=== PATIENT | male | born 1975 | race Hispanic/Latino ===

== ENCOUNTER 2024-02-05 19:51 | Emergency (ER) | payer OTHER ==
[~2024-02-05] VITALS: Ht 177.8 cm; Wt 117.9 kg
[2024-02-05 20:15] VITALS: PULSE 90; RESP 17; TEMP 98.3
[2024-02-05] MEDS ORDERED: NEURONTIN300 MG PO (21:24)
[2024-02-05] MEDS ORDERED: LANTUS 3ML100 UNITS/ SQ (21:24)
[2024-02-05 21:50] VITALS: BP 167/86; PULSE 83; RESP 17; TEMP 98.1; O2SAT 99
== END 2024-02-05 21:40 | disposition home or self-care (01) ==
LOC: ER 19:58
DX: E11.40 Type 2 diabetes mellitus with diabetic neuropathy, unspecified (principal); I10 Essential (primary) hypertension; Z76.0 Encounter for issue of repeat prescription
CPT/HCPCS: 36415; 82948; 99283